=== PATIENT | female | born 1960 | race Caucasian/White ===

== ENCOUNTER → 2017-10-30 | Outpatient (CLI) | payer OTHER ==
[~2017-10-30] MED LIST: ARMTHY90PT PO; FISH OIL1 CAP PO; IBU800 PO; IBUP-1618 PO; LEVO100T95 PO; LEVO88TA42 PO; MELO-149 PO; MULT-1319 PO; PER PO; PROG100C PO
--- NOTE | 2017-10-31 09:10 | RADIOLOGY IMAGING REPORT ---
FACILITY: [facility] [place] PATIENT NAME: KOREY VICTORIA : [id number] MR: [id number] V: [id number] EXAM DATE: ORDERING PHYSICIAN: BJ VARNER TECHNOLOGIST: Daysi Guzmán PROCEDURE:BILATERAL DIGITAL SCREENING MAMMOGRAM WITH CAD ASSISTED INTERPRETATION & 3D TOMOSYNTHESIS COMPARISON:Prior mammograms 06/19/15, 02/01/13, 03/20/12, 11/25/10. INDICATIONS:screening FINDINGS: A small to moderate amount fibroglandular tissue is seen throughout the breasts. The parenchymal pattern has remained stable allowing for difference in mammographic technique & patient positioning. There is no evidence of malignant appearing mass, malignant appearing calcifications or other secondary sign of malignancy in either breast. DIAGNOSTIC CATEGORY 1--NEGATIVE. RECOMMENDATIONS: ROUTINE MAMMOGRAM AND CLINICAL EVALUATION. IMPRESSION: BIRADS 1: Negative. No significant abnormality is seen. Dictated by: Skylar Cat M.D. on 10/30/2017 at 15:55 Transcribed by: VANESSA on 10/30/2017 at 15:58 Approved by: Skylar Cat M.D. on 10/31/2017 at 9:06 [facility]
== END ==
LOC: MAMO 01:10
PROVIDERS: ATTEND Nurse Practitioner Family
DX: Z12.31 Encounter for screening mammogram for malignant neoplasm of breast (principal); Z80.3 Family history of malignant neoplasm of breast
CPT/HCPCS: 77063; 77067